=== PATIENT | female | born 1995 | race Two or more races ===

== ENCOUNTER 2017-10-23 09:18 | Outpatient (CLI) | payer OTHER ==
[2017-10-23] MEDS ORDERED: GADOPENTETATE DIMEGLUMINE 5 ML VIAL IVP ONE ×3 (09:19→10:12)
[2017-10-23] MEDS ORDERED: IOTHALAMATE MEGLUMINE 50 ML VIAL IVP ONE ×2 (09:19→10:12)
[2017-10-23] MEDS ORDERED: IOTHALAMATE MEGLUMINE 50 ML VIAL ONE (09:38)
[2017-10-23] MEDS ORDERED: LIDOCAINE 1% 10 ML MDV ONE (09:38)
[2017-10-23] MEDS ORDERED: BUFFERED LIDOCAINE 10 ML SYRINGE IU ONE (10:12)
[2017-10-23] MEDS ORDERED: LIDOCAINE 1% 10 ML MDV SUBQ ONE (10:12)
--- NOTE | 2017-10-23 13:17 | XRAY Report ---
DATE OF SERVICE: 10/23/2017 EXAM: FLUOROSCOPICALLY GUIDED LEFT HIP INJECTION FOR MR ARTHROGRAM: 10/23/2017 CLINICAL INDICATION: Left hip pain, history of labral tear, recurrent injury. FINDINGS: Following obtaining informed consent, the patient's left hip was prepped and draped in the usual sterile fashion. The skin and soft tissues were anesthetized with lidocaine. A spinal needle was inserted into the left hip joint, and following confirmation of needle positioning, a combination of iodinated contrast, dilute gadolinium, and lidocaine was injected intraarticularly. The patient tolerated the procedure well. No immediate complications. Spot image reveals no evidence of contrast extravasation. IMPRESSION: SUCCESSFUL LEFT HIP INJECTION FOR MR ARTHROGRAM. FLUOROSCOPY TIME: 45 SECONDS; 1 SPOT IMAGE OBTAINED. TD: 10/23/2017 12:12 MTDD
--- NOTE | 2017-10-23 15:30 | MRI Report ---
EXAM: LEFT HIP MRI ARTHROGRAM WITH CONTRAST EXAM DATE: 10/23/2017 10:47 AM. CLINICAL HISTORY: Left hip pain walking down stairs. COMPARISON: None. TECHNIQUE: Multiplanar, multisequence T1-weighted and fluid-sensitive, small [id number] sequences of the hip and large [id number] sequences of the pelvis after an arthrographic injection of dilute gadolinium, dictated under a separate exam. Other: None. FINDINGS: Bones: No fractures or subluxations. No marrow edema or bone lesions. Left Hip: No acetabular retroversion. There is no appreciable morphologic abnormality at the femoral head/neck offset. The Alpha angle is 45 degrees which is considered normal. No loose bodies. Contrast is seen in the anterosuperior labrum on its articular surface, tracking into the substance of the la kathi. The findings are consistent with an articular surface labral tear in the anterosuperior quadran t. The posterior labrum appears intact. There is no appreciable hyaline cartilage thinning. There are no visible osteophytes. The ligamentum teres is intact. Other Joints: The visualized lumbar spine, sacroiliac joints, symphysis pubis, and contralateral hip are unremarkable. Musculature: No edema or fatty atrophy. The gluteus medius and minimus tendons are normal. The visual ized hamstring tendons are normal. The ischiofemoral space is normal. Pelvic Cavity: The visualized viscera are unremarkable. No lymphadenopathy. No free fluid in the pelv is. Other: The visualized sciatic nerves are unremarkable. No bursitis. The subcutaneous tissues are unre markable. IMPRESSION: 1. Anterosuperior left labral tear. 2. No appreciable hyaline cartilage thinning. [facility] MUSCULOSKELETAL RADIOLOGY SECTION Referring Provider Line: [phone] SITE ID: [id number]
== END 2017-10-23 09:19 | disposition home or self-care (01) ==
LOC: DI 09:18
PROVIDERS: ATTEND Family Medicine
DX: S73.192A Other sprain of left hip, initial encounter (principal)
CPT/HCPCS: 20610; 73722; 77002; Q9961